=== PATIENT | female | born 1955 | race Caucasian/White ===

== ENCOUNTER 2021-03-05 07:18 | Day surgery (SDC) | payer BC, MEDICARE ==
[2021-03-05] MEDS ORDERED: fentaNYL 100 MCG/2 ML SDV ONE (07:48)
[2021-03-05] MEDS ORDERED: Midazolam 1 MG/ML 2 ML SDV ONE (07:48)
[2021-03-05] MEDS ORDERED: Propofol 200 MG/20 ML SDV ONE ×2 (07:48→10:03)
[2021-03-05] MEDS ORDERED: Dextrose 5%-Lactated Ringers 1,000 ML IV SCH (08:00)
[2021-03-05 11:02] VITALS: BP 126/71; PULSE 66
--- NOTE | 2021-03-11 18:18 | OR ---
DATE OF PROCEDURE: 03/05/2021 SURGEON: Edgardo Gale MD PREOPERATIVE DIAGNOSIS: History of colon polyps. POSTOPERATIVE DIAGNOSIS: Normal colonoscopic examination with no recurrent polyps. OPERATIVE PROCEDURE: Screening colonoscopy. ANESTHESIA: IV sedation. INDICATION FOR PROCEDURE: A 65-year-old female presenting for followup colonoscopy. She does have a history of previous adenomatous polyps of the colon with a colonoscopy with biopsies and/or polypectomy as indicated. Potential risks including bleeding and perforation were discussed, and the patient wishes to proceed. DETAILS OF PROCEDURE: The patient was taken to the operating room, placed in a left lateral decubitus position. IV sedation was administered, after which the initial digital rectal exam was performed, was unremarkable. Colonoscope was then passed to the level of the rectum with retroflexion revealing uncomplicated hemorrhoidal columns. Scope was eventually passed to the level of the cecum. The prep was fairly good, only a small amount of liquid stool was present to that level. No pathology was seen. Specifically, there were no diverticula, no areas of colitis, no recurrent polyps or other signs of neoplasia. Scope was then withdrawn. The above findings were reconfirmed. The procedure was concluded. The patient was taken to the recovery room in satisfactory condition. Recommendation would be to repeat the colonoscopy in 5 years. Edgardo Gale MD /[id number]
== END 2021-03-05 11:10 | disposition home or self-care (01) ==
LOC: JP.SDS 07:18
PROVIDERS: ATTEND Surgery
DX: Z12.11 Encounter for screening for malignant neoplasm of colon (principal); K64.9 Unspecified hemorrhoids; Z86.010 Personal history of colon polyps; Z87.19 Personal history of other diseases of the digestive system; Z88.8 Allergy status to other drugs, medicaments and biological substances
CPT/HCPCS: 45378; J2250; J2704; J3010; J7121

== ENCOUNTER 2024-06-05 15:24 | Emergency (ER) | payer MEDICARE, BC ==
[2024-06-05 16:41] VITALS: BP 174/82; PULSE 72
== END 2024-06-05 17:04 | disposition home or self-care (01) ==
LOC: JP.ED 15:24
DX: S20.36 Insect bite (nonvenomous) of front wall of thorax (principal); K21.9 Gastro-esophageal reflux disease without esophagitis; Z79.899 Other long term (current) drug therapy; Z88.8 Allergy status to other drugs, medicaments and biological substances; W57.XXXA Bitten or stung by nonvenomous insect and other nonvenomous arthropods, initial encounter
CPT/HCPCS: 99282